=== PATIENT | female | born 1975 | race Caucasian/White ===

== ENCOUNTER 2017-07-31 15:16 | Inpatient (IN) | payer OTHER ==
--- NOTE | 2017-07-31 15:49 | ED PDOC ---
HPI: Chest Pain Time Seen by Provider: 07/31/17 15:26 Chief Complaint (Nursing): Weakness/Neurological Deficit Chief Complaint (Provider): Chest Pain History Per: Patient History/Exam Limitations: no limitations Onset/Duration Of Symptoms: Days (x1), Intermittent Episodes Current Symptoms Are (Timing): Intermittent Episodes Associated Symptoms: denies: Dyspnea Additional Complaint(s): 42 year old female presents to ED with complaints of intermittent left sided chest pain x1 day and has a past medical history of CAD and stent placement in 2013. (+) left arm numbness, (-) SOB, headache, or peripheral weakness. 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 PCP: Trevin Cano Past Medical History Reviewed: Historical Data, Nursing Documentation, Vital Signs Vital Signs: Last Vital Signs Temp 97.8 F 07/31/17 15:23 Pulse 62 07/31/17 15:23 Resp 20 07/31/17 15:23 BP 138/61 07/31/17 15:23 Pulse Ox 99 07/31/17 17:09 - Medical History PMH: CAD - Surgical History Surgical History: Coronary Stent - Family History Family History: States: No Known Family Hx - Living Arrangements Living Arrangements: With Family - Allergies Allergies/Adverse Reactions: Allergies Allergy/AdvReac Type Severity Reaction Status Date / Time No Known Allergies Allergy Unverified 04/13/13 17:45 IRENE Risk Score for UA/NSTEMI - IRENE Risk Score Age > 64: NO Known CAD (Stenosis greater than 50%): YES IRENE Score: 1 Risk %: 5% Curb-65 Severity Score - CURB-65 Severity Score Confusion: No Respiratory Rate greater than/equal to 30: No Systolic BP <90 or Diastolic BP less than/equal 60mmHg: No Age >64: No Curb-65 Score: 0 Percentage 30-day mortality: 0.6% Wells Criteria for PE - Wells Criteria for Pulmonary Embolism Heart Rate >100: No Previous, objectively diagnosed PE or DVT: No Hemoptysis: No Total Score: 0 Review of Systems ROS Statement: Except As Marked, All Systems Reviewed And Found Negative Cardiovascular: Positive for: Chest Pain (left sided) Respiratory: Negative for: Shortness of Breath Neurological: Positive for: Numbness (left arm numbness). Negative for: Weakness (no peripheral weakness), Headache Physical Exam - Reviewed Nursing Documentation Reviewed: Yes Vital Signs Reviewed: Yes - Physical Exam Appears: Positive for: Non-toxic, No Acute Distress Head Exam: Positive for: ATRAUMATIC, NORMOCEPHALIC Skin: Positive for: Normal Color, Warm, Dry Eye Exam: Positive for: Normal appearance, EOMI, PERRL ENT: Positive for: Normal ENT Inspection Neck: Positive for: Normal, Painless ROM, Supple Cardiovascular/Chest: Positive for: Regular Rate, Rhythm. Negative for: Murmur Respiratory: Positive for: Normal Breath Sounds. Negative for: Respiratory Distress Gastrointestinal/Abdominal: Positive for: Normal Exam, Soft. Negative for: Tenderness Back: Positive for: Normal Inspection Extremity: Positive for: Normal ROM. Negative for: Deformity Neurologic/Psych: Positive for: Alert, manager net II-XII (intact), Oriented, Cerebellar Tests (intact). Negative for: Motor/Sensory Deficits ((-) focal, motor, or sensory deficit) - Laboratory Results Result Diagrams: 07/31/17 16:15 07/31/17 16:15 - ECG O2 Sat by Pulse Oximetry: 99 (RA) Pulse Ox Interpretation: Normal Medical Decision Making Medical Decision Makin Initial imp: chest pain, possible ACS. Less likely: neurological Initial plan: * CT HEAD * EKG * Labs * Trop I * UPreg * UDip * CXR CXR FINDINGS LUNGS: No active pulmonary disease. PLEURA: No significant pleural effusion identified. No pneumothorax apparent. CARDIOVASCULAR: Normal. OSSEOUS STRUCTURES: Minor multilevel degenerative spondylosis of the thoracic spine VISUALIZED UPPER ABDOMEN: Normal. OTHER FINDINGS: None. IMPRESSION: No active disease. Scribe Attestation: Documented by Joanne Cano acting as a scribe for Joshua Martin MD. Scribe Attestation: All medical record entries made by the Scribe were at my direction and personally dictated by me. I have reviewed the chart and agree that the record accurately reflects my personal performance of the history, physical exam, medical decision making, and the department course for this patient. I have also personally directed, reviewed, and agree with the discharge instructions and disposition. Disposition - Clinical Impression Clinical Impression: Chest pain - Patient ED Disposition Is Patient to be Admitted: Yes - Disposition Disposition Time: 17:54 Condition: FAIR Forms: [employer] (Yemeni) - Pt Status Changed To: Hospital Disposition Of: Observation - POA Present On Arrival: None
[2017-07-31 16:23] LABS: BASO # 0.1 K/uL (0.0-0.2); BASO % 1.1 % (0.0-2.0); EOS # 0.2 K/uL (0.0-0.7); EOS % 2.7 % (0.0-4.0); HEMATOCRIT 37.8 % (34.0-47.0); LYMPH # 2.5 K/uL (1.0-4.3); LYMPH % 32.1 % (20.0-40.0); MEAN CELL VOLUME 89.3 fl (81.0-99.0); MEAN CORPUSCULAR HEMOGLOBIN 29.8 pg (27.0-31.0); MEAN CORPUSCULAR HGB CONC 33.4 g/dL (33.0-37.0); MEAN PLATELET VOLUME 9.2 fl (7.2-11.7); MONO # 0.8 K/uL (0.0-0.8); MONO % 10.2 % (0.0-10.0); NEUT # 4.2 K/uL (1.8-7.0); NEUT % 53.9 % (50.0-75.0); NRBC % 0.1 % (0.0-0.0); RED CELL DISTRIBUTION WIDTH 13.2 % (11.5-14.5); WHITE BLOOD COUNT 7.8 K/uL (4.8-10.8)
[2017-07-31 16:40] LABS: ALB/GLOB RATIO 1.3 (1.0-2.1); ALKALINE PHOSPHATASE 49 U/L (38-126); ALT/SGPT 31 U/L (9-52); AST/SGOT 32 U/L (14-36); BILIRUBIN,TOTAL 0.6 mg/dl (0.2-1.3); BLOOD UREA NITROGEN 12 mg/dl (7-17); CALCIUM 9.1 mg/dL (8.4-10.2); CARBON DIOXIDE 26 mmol/L (22-30); CHLORIDE 102 mmol/L (98-107); GFR AFRICAN-AMERICAN > 60; GLUCOSE,RANDOM 81 mg/dL (65-105); POTASSIUM 3.9 MMOL/L (3.6-5.0); SODIUM 140 mmol/l (132-148); TOTAL PROTEIN 7.9 G/DL (6.3-8.2)
--- NOTE | 2017-07-31 16:46 | RAD ---
HISTORY: chest pain COMPARISON: No prior. TECHNIQUE: Chest PA and lateral FINDINGS: LUNGS: No active pulmonary disease. PLEURA: No significant pleural effusion identified. No pneumothorax apparent. CARDIOVASCULAR: Normal. OSSEOUS STRUCTURES: Minor multilevel degenerative spondylosis of the thoracic spine VISUALIZED UPPER ABDOMEN: Normal. OTHER FINDINGS: None. IMPRESSION: No active disease.
--- NOTE | 2017-07-31 17:41 | CT ---
PROCEDURE: CT HEAD WITHOUT CONTRAST. HISTORY: left arm numbness COMPARISON: None available. TECHNIQUE: Axial computed tomography images were obtained through the head/brain without intravenous contrast. Radiation dose: Total exam DLP = 986.95 mGy-cm. This CT exam was performed using one or more of the following dose reduction techniques: Automated exposure control, adjustment of the mA and/or kV according to patient size, and/or use of iterative reconstruction technique. FINDINGS: HEMORRHAGE: No intracranial hemorrhage. BRAIN: No mass effect or edema. No atrophy or chronic microvascular ischemic changes. VENTRICLES: No evidence of obstructive hydrocephalus. CALVARIUM: Unremarkable. PARANASAL SINUSES: Unremarkable as visualized. No significant inflammatory changes. MASTOID AIR CELLS: Unremarkable as visualized. No inflammatory changes. OTHER FINDINGS: None. IMPRESSION: No acute intracranial hemorrhage.
--- NOTE | 2017-07-31 18:29 | CP.PCM.HP ---
History of Present Illness - History of Present Illness History of Present Illness: 42 yo female with history of CAD (stent, 2013) complaining of on and off left arm and left neck numbness since a week ago associated with pulsating left sided chest pain. Denied weakness or SOB. 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 Present on Admission - Present on Admission Any Indicators Present on Admission: No History of DVT/PE: No History of Uncontrolled Diabetes: No Urinary Catheter: No Decubitus Ulcer Present: No Review of Systems - Review of Systems All systems: reviewed and no additional remarkable complaints except (aside from those mentioned above, 12 point system review were negative by me) Past Patient History - Tetanus Immunizations Tetanus Immunization: Unknown - Past Social History Smoking Status: Never Smoked Alcohol: None Drugs: Denies Home Situation {Lives}: With Family - CARDIAC Hx Cardiac Disorders: Yes Other/Comment: cardiac stent x1 - PULMONARY Hx Respiratory Disorders: No - NEUROLOGICAL Hx Neurological Disorder: No - HEENT Hx HEENT Problems: No - RENAL Hx Chronic Kidney Disease: No - ENDOCRINE/METABOLIC Hx Endocrine Disorders: No - HEMATOLOGICAL/ONCOLOGICAL Hx Blood Disorders: No - INTEGUMENTARY Hx Dermatological Problems: No - MUSCULOSKELETAL/RHEUMATOLOGICAL Hx Musculoskeletal Disorders: No - GASTROINTESTINAL Hx Gastrointestinal Disorders: No - GENITOURINARY/GYNECOLOGICAL Hx Genitourinary Disorders: No - PSYCHIATRIC Hx Psychophysiologic Disorder: No Hx Substance Use: No - SURGICAL HISTORY Hx Coronary Stent: Yes - ANESTHESIA Hx Anesthesia: No Meds Allergies/Adverse Reactions: Allergies Allergy/AdvReac Type Severity Reaction Status Date / Time No Known Allergies Allergy Unverified 04/13/13 17:45 Physical Exam - Constitutional Appears: No Acute Distress - Head Exam Head Exam: ATRAUMATIC - Eye Exam Eye Exam: absent: Scleral icterus - ENT Exam ENT Exam: Mucous Membranes Moist - Neck Exam Neck exam: Negative for: Meningismus, Tenderness - Respiratory Exam Respiratory Exam: absent: Rhonchi, Wheezes, Respiratory Distress - Cardiovascular Exam Cardiovascular Exam: REGULAR RHYTHM, +S1, +S2 - GI/Abdominal Exam GI & Abdominal Exam: Soft. absent: Tenderness - Rectal Exam Rectal Exam: Deferred - Extremities Exam Extremities exam: Negative for: calf tenderness, pedal edema - Back Exam Back exam: NORMAL INSPECTION - Neurological Exam Neurological exam: Alert, Oriented x3 - Psychiatric Exam Psychiatric exam: Normal Affect - Skin Skin Exam: Dry, Intact Results - Vital Signs Recent Vital Signs: Last Vital Signs Temp 97.8 F 07/31/17 15:23 Pulse 62 07/31/17 15:23 Resp 20 07/31/17 15:23 BP 138/61 07/31/17 15:23 Pulse Ox 99 07/31/17 17:54 - Labs Result Diagrams: 07/31/17 16:15 07/31/17 16:15 Assessment & Plan (1) Chest pain Status: Acute Comment: place on observation in telemetry. serial Troponin and EKG. NTG SL q 4hrs prn for chest pain (2) CAD (coronary artery disease) Status: Acute Comment: ASA 81mg PO daily
[2017-08-01 08:07] LABS: BASO # 0.1 K/uL (0.0-0.2); BASO % 0.9 % (0.0-2.0); EOS # 0.2 K/uL (0.0-0.7); EOS % 3.4 % (0.0-4.0); HEMATOCRIT 36.6 % (34.0-47.0); LYMPH # 1.7 K/uL (1.0-4.3); LYMPH % 26.5 % (20.0-40.0); MEAN CELL VOLUME 89.4 fl (81.0-99.0); MEAN CORPUSCULAR HGB CONC 33.6 g/dL (33.0-37.0); MEAN PLATELET VOLUME 9.1 fl (7.2-11.7); MONO # 0.7 K/uL (0.0-0.8); MONO % 10.9 % (0.0-10.0); NEUT # 3.8 K/uL (1.8-7.0); NEUT % 58.3 % (50.0-75.0); NRBC % 0.1 % (0.0-0.0); RED CELL DISTRIBUTION WIDTH 12.9 % (11.5-14.5); WHITE BLOOD COUNT 6.5 K/uL (4.8-10.8)
[2017-08-01 08:16] LABS: BLOOD UREA NITROGEN 15 mg/dl (7-17); CARBON DIOXIDE 26 mmol/L (22-30); CHLORIDE 105 mmol/L (98-107); GFR AFRICAN-AMERICAN > 60; GLUCOSE,RANDOM 91 mg/dL (65-105); POTASSIUM 4.1 MMOL/L (3.6-5.0); SODIUM 142 mmol/l (132-148)
[2017-08-01] MEDS ORDERED: Enoxaparin 40 mg Syringe SC SCH (09:00)
--- NOTE | 2017-08-01 11:34 | CARD ---
APPROVED REPORT EKG Measurement Heart [id number] NV 130P-5 [id number] <Conclusion> Sinus bradycardia Otherwise normal ECG
--- NOTE | 2017-08-01 13:43 | CARD ---
APPROVED REPORT EKG Measurement Heart [id number] [place] 132P-14 [id number] <Conclusion> Sinus bradycardia with premature atrial complexes in a pattern of bigeminy Otherwise normal ECG
--- NOTE | 2017-08-01 16:23 | CP.PCM.PN ---
Subjective - Date & Time of Evaluation Date of Evaluation: 08/01/17 Time of Evaluation: 13:00 - Subjective Subjective: Pt seen and examined. Denied numbness on left arm but still having mild left sided chest pain. Objective - Vital Signs/Intake and Output Vital Signs (last 24 hours): Temp Pulse Resp BP Pulse Ox 97.7 F 62 18 127/70 100 08/01/17 12:22 08/01/17 12:22 08/01/17 12:22 08/01/17 12:22 08/01/17 12:22 - Medications Medications: Current Medications Acetaminophen (Tylenol 325mg Tab) 650 mg PO Q6 PRN PRN Reason: Pain, Mild (1-3) Last Admin: 07/31/17 20:41 Dose: 650 mg Enoxaparin Sodium (Lovenox) 40 mg SC DAILY [facility] PRN Reason: Protocol Last Admin: 08/01/17 09:01 Dose: 40 mg - Constitutional Appears: No Acute Distress - Head Exam Head Exam: ATRAUMATIC - Eye Exam Eye Exam: absent: Scleral icterus - ENT Exam ENT Exam: Mucous Membranes Moist - Neck Exam Neck Exam: absent: Meningismus - Respiratory Exam Respiratory Exam: absent: Rhonchi, Wheezes - Cardiovascular Exam Cardiovascular Exam: REGULAR RHYTHM, +S1, +S2 - GI/Abdominal Exam GI & Abdominal Exam: Soft. absent: Tenderness - Rectal Exam Rectal Exam: Deferred - Extremities Exam Extremities Exam: absent: Pedal Edema - Neurological Exam Neurological Exam: Alert, Oriented x3 - Psychiatric Exam Psychiatric exam: Normal Affect - Skin Skin Exam: Dry, Intact Assessment and Plan (1) Chest pain Status: Acute (2) CAD (coronary artery disease) Status: Chronic - Assessment and Plan (Free Text) Assessment: 42 yo female with history of CAD (stent, 2013) came in because of numbness of left arm and neck associated with left sided chest pain. (1) Chest pain initial 2 sets of Troponin were negative for ischemic events however the 3rd sets turned positive still having mild chest pain but numbness of the left arm and neck had disappeared cardiology consult with Dr Garcia repeat Troponin after 8 hrs (4th sets) ECHO (2) CAD (coronary artery disease) ASA 81mg PO daily
[2017-08-01] MEDS ORDERED: Enoxaparin 80 mg Syringe SC STA (20:40)
[2017-08-01] MEDS ORDERED: Nitroglycerin 2% 15 INCH/30 GM TUBE TOP STA (20:42)
[2017-08-01] MEDS ORDERED: Nitroglycerin 2% Ointment Foilpak UD TOP STA (20:44)
[2017-08-02 05:24] VITALS: O2SAT 99
[2017-08-02 08:52] VITALS: RESP 18
[2017-08-02] MEDS ORDERED: Enoxaparin 80 mg Syringe SC SCH (09:00)
--- NOTE | 2017-08-02 11:14 | CP.PCM.CON ---
History of Present Illness - History of Present Illness History of Present Illness: this 42-year-old female came into the emergency room complaining of left breast pain quite unconnected to any physical activity. The patient gives history of having had a coronary stent put in 4 years back following which she had taken aspirin and brillenta for one year fitfully. She was quite free of any chest discomfort or palpitations or sudden shortness of breath. She had moved to [place] and has returned to [place] 3 months back. She plans to start seeing her clinical data management director again. She describes a vague sense of chest discomfort quite unconnected to any physical activity and often is able to walk 8-10 blocks without any difficulty. She denies any history of diabetes or hypertension and has never been a smoker. She has no symptoms of congestive cardiac failure. There is no family history of vascular disease. Her weight has been stable. Physical examination shows an anxious elderly female who describes left breast pain and has tenderness in the left breast area. Her heart rate was 64 bpm and regular and her blood pressure was 124/74 mmHg. Her pedal pulses were well felt and there were no carotid bruits. Jugular venous pressure was not elevated and there was no edema over her lower extremities. Again there was tenderness in the left breast area. This was similar to the discomfort that brought her to the emergency room. The apex was not palpable the first and second heart sound are normal there was no murmur, no gallop and no rales. Abdomen was soft liver and spleen are not palpable. Her electrocardiogram at admission and again this morning where normal. Troponin levels were consistently normal on multiple examinations except a single 1 which showed an elevated number.subsequent follow -up troponin levels were normal. This obviously is a lab error. IMPRESSION: atypical chest pain with no evidence of myocardial ischemia. History of coronary stenting 4 years back. The patient may be allowed to return home and see her own clinical data management director which she plans to do. She continues to take aspirin at home. Past Patient History - Tetanus Immunizations Tetanus Immunization: Unknown - Past Medical History & Family History Past Medical History?: Yes - Past Social History Smoking Status: Never Smoked - CARDIAC Hx Cardiac Disorders: Yes Other/Comment: cardiac stent x1 2014 - PULMONARY Hx Respiratory Disorders: No - NEUROLOGICAL Hx Neurological Disorder: No - HEENT Hx HEENT Problems: No - RENAL Hx Chronic Kidney Disease: No - ENDOCRINE/METABOLIC Hx Endocrine Disorders: No - HEMATOLOGICAL/ONCOLOGICAL Hx Blood Disorders: No - INTEGUMENTARY Hx Dermatological Problems: No - MUSCULOSKELETAL/RHEUMATOLOGICAL Hx Musculoskeletal Disorders: No Hx Falls: No - GASTROINTESTINAL Hx Gastrointestinal Disorders: No - GENITOURINARY/GYNECOLOGICAL Hx Genitourinary Disorders: No - PSYCHIATRIC Hx Psychophysiologic Disorder: No Hx Substance Use: No - SURGICAL HISTORY Hx Surgeries: Yes Hx Coronary Stent: Yes - ANESTHESIA Hx Anesthesia: Yes Has any member of the family had a problem w/ anesthesia?: No Meds Allergies/Adverse Reactions: Allergies Allergy/AdvReac Type Severity Reaction Status Date / Time No Known Allergies Allergy Unverified 04/13/13 17:45 - Medications Medications: Current Medications Acetaminophen (Tylenol 325mg Tab) 650 mg PO Q6 PRN PRN Reason: Pain, Mild (1-3) Last Admin: 08/01/17 20:30 Dose: 650 mg Aspirin (Aspirin) 325 mg PO DAILY [facility] Last Admin: 08/02/17 09:02 Dose: 325 mg Atorvastatin Calcium (Lipitor) 40 mg PO DAILY [facility] Last Admin: 08/02/17 08:59 Dose: 40 mg Enoxaparin Sodium (Lovenox) 70 mg SC Q12 [facility] PRN Reason: Protocol Metoprolol Tartrate (Lopressor) 25 mg PO Q12 [facility] Last Admin: 08/02/17 09:03 Dose: Not Given Results - Vital Signs Recent Vital Signs: Last Vital Signs Temp 97.9 F 08/02/17 08:51 Pulse 56 L 08/02/17 09:03 Resp 18 08/02/17 08:51 BP 94/55 L 08/02/17 09:03 Pulse Ox 99 08/02/17 08:51 - Labs Result Diagrams: 08/01/17 06:00 08/01/17 06:00 Labs: Laboratory Results - last 24 hr 08/01/17 08/02/17 18:30 05:30 Troponin I < 0.0120 < 0.0120
[2017-08-02 12:38] VITALS: BP 98/63; PULSE 64; TEMP 98.4
--- NOTE | 2017-08-02 13:38 | CP.PCM.DIS ---
Provider - Provider Date of Admission: 08/01/17 12:53 Attending physician: Rob Lamas MD Consults: Dr Garcia Time Spent in preparation of Discharge (in minutes): 25 Diagnosis - Discharge Diagnosis (1) Chest pain Status: Acute Comment: improved. Troponins were within normal limit aside from one which was elevated (2) CAD (coronary artery disease) Status: Chronic Comment: continue ASA 81mg PO daily Hospital Course - Lab Results Lab Results: Most Recent Lab Values WBC 6.5 K/uL (4.8-10.8) 08/01/17 06:00 RBC 4.10 Mil/uL (3.80-5.20) 08/01/17 06:00 Hgb 12.3 g/dL (12.0-16.0) 08/01/17 06:00 Hct 36.6 % (34.0-47.0) 08/01/17 06:00 MCV 89.4 fl (81.0-99.0) 08/01/17 06:00 MCH 30.0 pg (27.0-31.0) 08/01/17 06:00 MCHC 33.6 g/dL (33.0-37.0) 08/01/17 06:00 RDW 12.9 % (11.5-14.5) 08/01/17 06:00 Plt Count 194 K/uL (130-400) 08/01/17 06:00 MPV 9.1 fl (7.2-11.7) 08/01/17 06:00 Neut % (Auto) 58.3 % (50.0-75.0) 08/01/17 06:00 Lymph % (Auto) 26.5 % (20.0-40.0) 08/01/17 06:00 [place] % (Auto) 10.9 % (0.0-10.0) H 08/01/17 06:00 Eos % (Auto) 3.4 % (0.0-4.0) 08/01/17 06:00 Baso % (Auto) 0.9 % (0.0-2.0) 08/01/17 06:00 Neut # 3.8 K/uL (1.8-7.0) 08/01/17 06:00 Lymph # 1.7 K/uL (1.0-4.3) 08/01/17 06:00 [place] # 0.7 K/uL (0.0-0.8) 08/01/17 06:00 Eos # 0.2 K/uL (0.0-0.7) 08/01/17 06:00 Baso # 0.1 K/uL (0.0-0.2) 08/01/17 06:00 Sodium 142 mmol/l (132-148) 08/01/17 06:00 Potassium 4.1 MMOL/L (3.6-5.0) 08/01/17 06:00 Chloride 105 mmol/L (98-107) 08/01/17 06:00 Carbon Dioxide 26 mmol/L (22-30) 08/01/17 06:00 Anion Gap 14 (10-20) 08/01/17 06:00 BUN 15 mg/dl (7-17) 08/01/17 06:00 Creatinine 1.0 mg/dL (0.7-1.2) 08/01/17 06:00 Est GFR ( Amer) > 60 08/01/17 06:00 Est GFR (Non-Af Amer) > 60 08/01/17 06:00 Random Glucose 91 mg/dL (65-105) 08/01/17 06:00 Calcium 9.0 mg/dL (8.4-10.2) 08/01/17 06:00 Total Bilirubin 0.6 mg/dl (0.2-1.3) 07/31/17 16:15 AST 32 U/L (14-36) 07/31/17 16:15 ALT 31 U/L (9-52) 07/31/17 16:15 Alkaline Phosphatase 49 U/L (38-126) 07/31/17 16:15 Troponin I < 0.0120 ng/mL (0.00-0.120) 08/02/17 05:30 Total Protein 7.9 G/DL (6.3-8.2) 07/31/17 16:15 Albumin 4.5 g/dL (3.5-5.0) 07/31/17 16:15 Globulin 3.4 gm/dL (2.2-3.9) 07/31/17 16:15 Albumin/Globulin Ratio 1.3 (1.0-2.1) 07/31/17 16:15 - Hospital Course Hospital Course: 42 yo female with history of CAD (stent, 2013) complaining of on and off left arm and left neck numbness associated with pulsating left sided chest pain. Troponin levels were within normal except for the 3rd set which was elevated. Follow up levels however were again within normal limit. Patient was discharged in stable condition and was advised to continue taking ASA. Patient would follow up with her own hand trimmer within 2 weeks. Discharge Exam - Head Exam Head Exam: ATRAUMATIC - Eye Exam Eye Exam: Normal appearance - ENT Exam ENT Exam: Mucous Membranes Moist - Neck Exam Neck exam: Full Rom - Respiratory Exam Respiratory Exam: absent: Rhonchi, Wheezes, Respiratory Distress - Cardiovascular Exam Cardiovascular Exam: REGULAR RHYTHM, +S1, +S2 - GI/Abdominal Exam GI & Abdominal Exam: Soft. absent: Tenderness - Rectal Exam Rectal Exam: Deferred - Extremities Exam Extremities exam: normal inspection - Neurological Exam Neurological exam: Alert, Oriented x3 - Psychiatric Exam Psychiatric exam: Normal Affect - Skin Skin Exam: Dry, Intact Discharge Plan - Follow Up Plan Condition: FAIR Disposition: HOME/ ROUTINE
== END 2017-08-02 13:15 | disposition home or self-care (01) | DRG 143 ==
LOC: H.ER 15:16 → H.ERHOLD 17:52 → H.TEL 18:45 → OBSVTOIN 08-01 12:53
DX: R07.89 Other chest pain (principal); I25.10 Atherosclerotic heart disease of native coronary artery without angina pectoris; Z95.5 Presence of coronary angioplasty implant and graft

== ENCOUNTER 2017-12-22 19:45 | Emergency (ER) | payer OTHER ==
[2017-12-22 20:09] VITALS: O2SAT 100
--- NOTE | 2017-12-22 20:48 | ED PDOC ---
HPI: CCC, URI, Sore Throat Time Seen by Provider: 12/22/17 20:46 Chief Complaint (Nursing): ENT Problem Chief Complaint (Provider): FEVER History Per: Patient (42 Y/O FEMALE WITH FEVER/BODYACHES X 2 DAYS. NO VOMITING/ DIARRHEA. NOTES MODERATE PAIN GENERALIZED. HAS COUGH AND SORE THROAT. NO ILL CONTACTS. NO FLU VACCINE THIS YEAR.) Past Medical History Reviewed: Historical Data, Nursing Documentation, Vital Signs Vital Signs: Last Vital Signs Temp 101.8 F H 12/22/17 20:50 Pulse 91 H 12/22/17 20:06 Resp 16 12/22/17 20:06 BP 134/44 L 12/22/17 20:06 Pulse Ox 100 12/22/17 20:48 - Medical History PMH: CAD, Hyperlipidemia Denies: Chronic Kidney Disease - Surgical History Surgical History: Coronary Stent - Family History Family History: States: No Known Family Hx - Home Medications Home Medications: Ambulatory Orders Medication Instructions Recorded Aspirin [Low Dose Aspirin EC] 81 mg PO DAILY 07/31/17 Acetaminophen [Acetaminophen Extra 2 tab PO Q4 PRN #24 tablet 12/22/17 Strength] Ibuprofen [Motrin Tab] 800 mg PO Q8 PRN #21 tab 12/22/17 Oseltamivir Phosphate [Tamiflu] 75 mg PO BID #9 capsule 12/22/17 - Allergies Allergies/Adverse Reactions: Allergies Allergy/AdvReac Type Severity Reaction Status Date / Time No Known Allergies Allergy Verified 12/22/17 20:06 Review of Systems ROS Statement: Except As Marked, All Systems Reviewed And Found Negative Constitutional: Positive for: Fever Respiratory: Positive for: Cough Physical Exam - Reviewed Nursing Documentation Reviewed: Yes Vital Signs Reviewed: Yes - Physical Exam Appears: Positive for: Well, Non-toxic, No Acute Distress Head Exam: Positive for: ATRAUMATIC, NORMAL INSPECTION, NORMOCEPHALIC Skin: Positive for: Normal Color, Warm, DRY Eye Exam: Positive for: EOMI, Normal appearance, PERRL ENT: Positive for: Normal ENT Inspection Neck: Positive for: Normal, Painless ROM Cardiovascular/Chest: Positive for: Regular Rate, Rhythm Respiratory: Positive for: CNT, Normal Breath Sounds Gastrointestinal/Abdominal: Positive for: Normal Exam, Bowel Sounds, Soft Back: Positive for: Normal Inspection Extremity: Positive for: Normal ROM Neurologic/Psych: Positive for: Alert, Oriented - ECG O2 Sat by Pulse Oximetry: 100 - Progress ED Course And Treament: ACETAMINOPHEN 975MG X 1 DOSE TAMIFLU 75 MG X 1 DOSE rapid strep neg motrin 600mg x 1 dose Disposition - Clinical Impression Clinical Impression: Influenza - Patient ED Disposition Is Patient to be Admitted: No - Disposition Referrals: [facility] [Outside] Disposition: Routine/Home Disposition Time: 21:27 Condition: FAIR Prescriptions: Acetaminophen [Acetaminophen Extra Strength] 2 tab PO Q4 PRN #24 tablet PRN Reason: Fever >100.4 F Ibuprofen [Motrin Tab] 800 mg PO Q8 PRN #21 tab PRN Reason: Fever >100.4 F Oseltamivir Phosphate [Tamiflu] 75 mg PO BID #9 capsule Instructions: Influenza (ED) Forms: [employer] (Yoruba), [facility] ED School/Work Excuse Print Language: URUGUAYAN
[2017-12-22] MEDS ORDERED: Sodium Chloride 0.9% 1,000 ML IV STA (21:48)
[2017-12-22 22:20] LABS: BASO % 0.5 % (0.0-2.0); EOS % 0.1 % (0.0-4.0); HEMOGLOBIN 10.2 g/dL (12.0-16.0); LYMPH # 0.7 K/uL (1.0-4.3); LYMPH % 10.1 % (20.0-40.0); MEAN CELL VOLUME 75.9 fl (81.0-99.0); MEAN CORPUSCULAR HEMOGLOBIN 24.2 pg (27.0-31.0); MEAN CORPUSCULAR HGB CONC 31.9 g/dL (33.0-37.0); MEAN PLATELET VOLUME 8.5 fl (7.2-11.7); MONO # 0.7 K/uL (0.0-0.8); MONO % 10.4 % (0.0-10.0); NEUT # 5.1 K/uL (1.8-7.0); NEUT % 78.9 % (50.0-75.0); NRBC % 0.3 % (0.0-0.0); RBC 4.22 Mil/uL (3.80-5.20); RED CELL DISTRIBUTION WIDTH 14.6 % (11.5-14.5); WHITE BLOOD COUNT 6.5 K/uL (4.8-10.8)
[2017-12-22 22:32] LABS: ALB/GLOB RATIO 1.2 (1.0-2.1); ALBUMIN 4.3 g/dL (3.5-5.0); CALCIUM 8.5 mg/dL (8.4-10.2); GFR AFRICAN-AMERICAN > 60; GFR NON-AFRICAN AMERICAN > 60
[2017-12-22 22:45] LABS: ALT/SGPT 26 U/L (9-52); AST/SGOT 43 U/L (14-36); BLOOD UREA NITROGEN 10 mg/dl (7-17)
[2017-12-23 00:03] VITALS: TEMP 100.2
[2017-12-23] MEDS ORDERED: Sodium Chloride 0.9% 1,000 ML IV STA (00:37)
[2017-12-23 01:03] LABS: SQUAMOUS EPITHIAL 2 /hpf (0-5); URINE BILIRUBIN NEGATIVE (NEGATIVE); URINE BLOOD MODERATE (NEGATIVE); URINE CLARITY SLIGHTY-CLOUDY (Clear); URINE COLOR YELLOW (YELLOW); URINE GLUCOSE (UA) NEG (Normal); URINE LEUKOCYTE ESTERASE NEG Leu/uL (Negative); URINE NITRATE NEGATIVE (NEGATIVE); URINE PROTEIN NEGATIVE (NEGATIVE); URINE UROBILINOGEN 0.2-1.0 mg/dL (0.2-1.0)
[2017-12-23 02:07] VITALS: BP 121/64; PULSE 72; RESP 18
--- NOTE | 2017-12-23 11:17 | RAD ---
HISTORY: ROUTINE COMPARISON: 07/31/2017. TECHNIQUE: Chest PA and lateral FINDINGS: LUNGS: No active pulmonary disease. PLEURA: No significant pleural effusion identified. No pneumothorax apparent. CARDIOVASCULAR: Normal. OSSEOUS STRUCTURES: No significant abnormalities. VISUALIZED UPPER ABDOMEN: Normal. OTHER FINDINGS: None. IMPRESSION: No active disease. No significant interval change compared to the prior examination(s).
--- NOTE | 2017-12-24 18:31 | CARD ---
APPROVED REPORT EKG Measurement Heart [id number] <Conclusion> Normal sinus rhythm Normal ECG
== END 2017-12-23 02:14 | disposition home or self-care (01) ==
LOC: H.ER 19:45
DX: J11.1 Influenza due to unidentified influenza virus with other respiratory manifestations (principal); E78.5 Hyperlipidemia, unspecified; I25.10 Atherosclerotic heart disease of native coronary artery without angina pectoris; Z79.82 Long term (current) use of aspirin; Z95.5 Presence of coronary angioplasty implant and graft
CPT/HCPCS: 71046; 80053; 81003; 81025; 84484; 85025; 87070; 87086; 87430; 87804; 93005; 96360; 99283; J7040

== ENCOUNTER 2018-03-13 01:16 | Emergency (ER) | payer OTHER ==
[2018-03-13 01:32] VITALS: BP 125/57; PULSE 67; TEMP 97.7; O2SAT 100; BMI 24.1
[2018-03-13 01:46] VITALS: RESP 16
--- NOTE | 2018-03-13 02:54 | ED PDOC ---
HPI: Chest Pain Chief Complaint (Provider): Chest pain History Per: Patient History/Exam Limitations: no limitations Onset/Duration Of Symptoms: Days, Intermittent Episodes Current Symptoms Are (Timing): Still Present Severity: Moderate Quality: "Pain" Associated Symptoms: Other Exacerbating Factors: None Alleviating Factors: None Additional History Per: Patient <Juan Becerra - Last Filed: 03/13/18 04:54> <Fitz Saavedra - Last Filed: 03/13/18 05:28> Chief Complaint (Nursing): Chest Pain Additional Complaint(s): 42 y/o F with PMhx of cardiac stent in 2013 on Aspirin and migraines, presents to ED with c/o chest pain and a headache that is now resolved. CP is occasional , intermittent with no alleviating or aggravating factors. Denies SOB, palpitations. Patient states that for the past few days she hasnt been able to sleep well and has had a headache localized to left side of the head that resolved before coming to hosp after 1 Tylenol at home, but this morning she woke up with "sensation" below left eyelid that is still present. She cant describe it but states is not pain. Denies vision changes or eye pain. ( Juan Becerra) Supervising Attending Note - Supervising Attending Note The Documented history was done by the: Physician Chucking Machine Operator The documented physical exam was done by the: Physician Chucking Machine Operator - Attestation: I have personally seen and examined this patient.: Yes I have fully participated in the care of the patient.: Yes I have reviewed all pertinent clinical information: Yes <Fitz Saavedra - Last Filed: 03/13/18 05:28> Past Medical History - Medical History PMH: CAD, Hyperlipidemia Denies: Chronic Kidney Disease - Surgical History Surgical History: Coronary Stent - Family History Family History: States: Unknown Family Hx - Social History Current smoker - smoking cessation education provided: No <Juan Becerra - Last Filed: 03/13/18 04:54> <Fitz Saavedra - Last Filed: 03/13/18 05:28> Vital Signs: Last Vital Signs Temp 97.7 F 03/13/18 01:42 Pulse 67 03/13/18 01:42 Resp 16 03/13/18 01:42 BP 125/57 L 03/13/18 01:42 Pulse Ox 100 03/13/18 04:54 - Home Medications Home Medications: Ambulatory Orders Medication Instructions Recorded Aspirin [Low Dose Aspirin EC] 81 mg PO DAILY 07/31/17 Acetaminophen [Acetaminophen Extra 2 tab PO Q4 PRN #24 tablet 12/22/17 Strength] Ibuprofen [Motrin Tab] 800 mg PO Q8 PRN #21 tab 12/22/17 Oseltamivir Phosphate [Tamiflu] 75 mg PO BID #9 capsule 12/22/17 - Allergies Allergies/Adverse Reactions: Allergies Allergy/AdvReac Type Severity Reaction Status Date / Time No Known Allergies Allergy Verified 12/22/17 20:06 IRENE Risk Score for UA/NSTEMI - IRENE Risk Score Age > 64: NO 3 or more CAD Risk Factors: NO Known CAD (Stenosis greater than 50%): YES Aspirin use in past 7 days: YES Severe Angina: NO EKG ST changes greater than 0.5mm: NO IRENE Score: 2 Risk %: 8% <Juan Becerra - Last Filed: 03/13/18 04:54> Review of Systems ROS Statement: Except As Marked, All Systems Reviewed And Found Negative Eyes: Positive for: Other (Discomfort L/eye) Cardiovascular: Positive for: Chest Pain Neurological: Positive for: Headache <Juan Becerra - Last Filed: 03/13/18 04:54> Physical Exam - Physical Exam Appears: Positive for: Well, No Acute Distress Head Exam: Positive for: ATRAUMATIC Skin: Positive for: Normal Color, Warm Eye Exam: Positive for: Normal appearance, EOMI, PERRL. Negative for: Nystagmus , Periorbital swelling, Periorbital tenderness, Conjunctival injection, Scleral icterus ENT: Negative for: Sinus Pain/Drainage, Pharyngeal Erythema, Tonsillar Swelling Neck: Positive for: Normal, Painless ROM Cardiovascular/Chest: Positive for: Regular Rate, Rhythm. Negative for: Gallop , Bradycardia, Tachycardia, Friction Rub Respiratory: Positive for: Normal Breath Sounds. Negative for: Crackles, Rales , Stridor, Wheezing, Respiratory Distress Gastrointestinal/Abdominal: Positive for: Soft. Negative for: Tenderness Extremity: Negative for: Pedal Edema, Calf Tenderness Neurologic/Psych: Positive for: Alert, Oriented, Mood/Affect (Anxious) <Juan Becerra - Last Filed: 03/13/18 04:54> - Laboratory Results Result Diagrams: 03/13/18 03:36 03/13/18 03:36 - ECG O2 Sat by Pulse Oximetry: 100 <Juan Becerra - Last Filed: 03/13/18 04:54> - Laboratory Results Result Diagrams: 03/13/18 03:36 03/13/18 03:36 <Fitz Saavedra - Last Filed: 03/13/18 05:28> - Progress ED Course And Treament: Trops and EKG normal CMP unremarkable Hgb 9 CP resolved Patient stable to DC home to f/u as outpatient for anemia workup (Juan Becerra) Medical Decision Making <Juan Becerra - Last Filed: 03/13/18 04:54> <Fitz Saavedra - Last Filed: 03/13/18 05:28> Medical Decision Makin42 y/o F with Hx of CAD with stent placement and migraine presents with c/o CP CP with Hx of CAD EKG Normal sinus rhythm Troponins, CMP, CBC and Coags Will revaluate (Juan Becerra) Disposition - Disposition Disposition Time: 04:50 <Juan Becerra - Last Filed: 03/13/18 04:54> <Fitz Saavedra - Last Filed: 03/13/18 05:28> - Clinical Impression Clinical Impression: Atypical chest pain - Disposition Condition: STABLE Instructions: Chest Pain Forms: [facility] (Tunisian) Print Language: [place]
[2018-03-13 03:42] LABS: BASO # 0.1 K/uL (0.0-0.2); BASO % 1.2 % (0.0-2.0); EOS # 0.2 K/uL (0.0-0.7); EOS % 3.1 % (0.0-4.0); LYMPH # 2.3 K/uL (1.0-4.3); LYMPH % 27.7 % (20.0-40.0); MEAN CELL VOLUME 71.6 fl (81.0-99.0); MEAN CORPUSCULAR HEMOGLOBIN 23.4 pg (27.0-31.0); MEAN CORPUSCULAR HGB CONC 32.7 g/dL (33.0-37.0); MEAN PLATELET VOLUME 8.4 fl (7.2-11.7); MONO # 0.8 K/uL (0.0-0.8); MONO % 9.2 % (0.0-10.0); NEUT # 4.8 K/uL (1.8-7.0); NEUT % 58.8 % (50.0-75.0); RBC 3.85 Mil/uL (3.80-5.20); RED CELL DISTRIBUTION WIDTH 16.7 % (11.5-14.5); WHITE BLOOD COUNT 8.1 K/uL (4.8-10.8)
[2018-03-13 04:00] LABS: ALB/GLOB RATIO 1.1 (1.0-2.1); ALBUMIN 3.8 g/dL (3.5-5.0); ALT/SGPT 28 U/L (9-52); AST/SGOT 32 U/L (14-36); BLOOD UREA NITROGEN 18 mg/dl (7-17); CALCIUM 8.8 mg/dL (8.4-10.2); GFR AFRICAN-AMERICAN > 60; GFR NON-AFRICAN AMERICAN > 60
[2018-03-13 05:26] LABS: INR 1.1 (0.9-1.2); PARTIAL THROMBOPLASTIN TIME 34.7 Seconds (25.6-37.1); PROTHROMBIN TIME 11.9 Seconds (9.8-13.1)
== END 2018-03-13 04:59 | disposition home or self-care (01) ==
LOC: H.ER 01:16
DX: R07.89 Other chest pain (principal); E78.5 Hyperlipidemia, unspecified; I25.10 Atherosclerotic heart disease of native coronary artery without angina pectoris; Z79.82 Long term (current) use of aspirin; Z95.5 Presence of coronary angioplasty implant and graft

== ENCOUNTER 2019-04-02 20:26 | Inpatient (IN) | payer SELFPAY ==
[2019-04-02 20:27] VITALS: BMI 24.1
[2019-04-02] MEDS ORDERED: Iohexol 240 (50 ml) PO STA (21:00)
[2019-04-02] MEDS ORDERED: Iohexol 240 (50 ml) ONE (21:07)
--- NOTE | 2019-04-02 21:22 | ED PDOC ---
HPI: Abdomen Time Seen by Provider: 04/02/19 20:45 Chief Complaint (Nursing): Abdominal Pain Chief Complaint (Provider): abdominal pain History Per: Patient, Tooth Cutter Spur (suzette #[id number]) History/Exam Limitations: no limitations Onset/Duration Of Symptoms: Days (3x) Current Symptoms Are (Timing): Still Present Severity: Moderate Location Of Pain/Discomfort: Epigastric, LUQ, LLQ Quality Of Discomfort: Other (constant, dull sometimes) Additional Complaint(s): 43 year old female with CAD (stent 2013) presents to the ED for an evaluation of abdominal pain that started 2x days ago. Patient states that the abdominal pain started in the left lower quadrant, and move upwards to the left upper quadrant and to the epigastric region and throat. Patient states that the pain is constant, but sometimes dull. Patient states that the epigastric and throat pain started yesterday after taking naproxen. Patient was seen in the clinic 2x days and was prescribed naproxen and an Rx for CT imaging. Patient reports taking naproxen with no relief and thinks that it made the pain worse. Patient reports having nausea, urinary frequency, and constipation. Patient states that she has constipation pain, but had a small bowel movement today. Pt does report occasionally left sided chest pain since having stent place, last was 2 days ago, nothing currently. 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 Patient denies vomiting, back pain, difficulty breathing, or a history of abdomi nal surgeries. PMD: [facility] Past Medical History Reviewed: Historical Data, Nursing Documentation, Vital Signs Vital Signs: Last Vital Signs Temp 98.1 F 04/02/19 20:37 Pulse 96 H 04/02/19 20:37 Resp 16 04/02/19 20:37 BP 126/67 04/02/19 20:37 Pulse Ox 100 04/02/19 20:37 GABE Report Viewed: Yes Primary Care Provider: FAMILY PROVIDER,NO - Medical History PMH: CAD, Hyperlipidemia Denies: Chronic Kidney Disease - Surgical History Surgical History: Coronary Stent (2013) - Family History Family History: States: No Known Family Hx - Social History Current smoker - smoking cessation education provided: No Alcohol: None Drugs: Denies - Home Medications Home Medications: Ambulatory Orders Medication Instructions Recorded Aspirin [Low Dose Aspirin EC] 81 mg PO DAILY 07/31/17 Naproxen [Naprosyn] 500 mg PO BID 04/03/19 - Allergies Allergies/Adverse Reactions: Allergies Allergy/AdvReac Type Severity Reaction Status Date / Time No Known Allergies Allergy Verified 04/02/19 20:40 Review of Systems ROS Statement: Except As Marked, All Systems Reviewed And Found Negative ENT: Positive for: Throat Pain Cardiovascular: Negative for: Chest Pain Respiratory: Negative for: Shortness of Breath Gastrointestinal: Positive for: Nausea, Abdominal Pain (LLQ, LUQ, epigastric), Constipation. Negative for: Vomiting Genitourinary Female: Positive for: Frequency Musculoskeletal: Negative for: Back Pain Physical Exam - Reviewed Nursing Documentation Reviewed: Yes Vital Signs Reviewed: Yes - Physical Exam Comments: GENERAL APPEARANCE: Patient is awake, alert, oriented x 3, in mild obvious discomfort. SKIN: Warm, dry; (-) cyanosis. EYES: (-) conjunctival pallor, (-) scleral icterus. ENMT: Mucous membranes moist. NECK: (-) tenderness, (-) stiffness, (-) lymphadenopathy. CHEST AND RESPIRATORY: (-) rales, (-) rhonchi, (-) wheezes; breath sounds equal bilaterally. HEART AND CARDIOVASCULAR: (-) irregularity; (-) murmur, (-) gallop. ABDOMEN AND GI: (-) distention. Bowel sounds active; soft, left side tenderness more LUQ and suprapubic tenderness. (-) guarding, (-) rebound, (-) palpable masses, (-) organomegaly, (-) CVA tenderness. EXTREMITIES: (-) deformity, (-) edema, (+) distal pulses. NEURO AND PSYCH: Mental status as above; (-) focal findings. - Laboratory Results Result Diagrams: 04/02/19 21:26 04/02/19 21:26 - ECG ECG Rhythm: Positive for: Normal QRS, Sinus Rhythm (60). Negative for: ST/T Changes O2 Sat by Pulse Oximetry: 100 (RA) Pulse Ox Interpretation: Normal Medical Decision Making Medical Decision Makin:45 Initial impression: 43 year old female with LLQ pain. Constipation vs divert iculitis. Initial plan: * CT abd pelvis with PO and IV contrast * CMP * lipase * udip * CBC with differential * urinalysis * omnipaque 50 ml PO * pepcid 20 mg IVP * toradol 30 mg IVP * zofran 4 mg IVP * EKG and trop added due to CAD history 02:20 CT SCAN OF THE ABDOMEN AND PELVIS WITH CONTRAST. CLINICAL HISTORY: Left lower quadrant pain. Constipation. Comparison: 01/31/2012. TECHNIQUE: Multiple axial and coronal CT images were obtained through the abdomen and pelvis after administration of intravenous contrast material. COMMENTS: Changes of pelvic congestion syndrome. Distended bladder. Diffuse thickening of the bladder. Bilateral basilar subsegmental atelectatic pulmonary changes. Diffuse thickening of the stomach. Moderate amount of fecal residue is noted in the large bowel. Uncomplicated colonic diverticulosis. Interval appearance of moderate amount of pericholecystic free fluid. 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 Findings are stable. The liver is of uniform attenuation without mass or defect. There is no intra or extrahepatic biliary ductal dilatation. The spleen is normal. The gallbladder is within normal limits. The pancreas is of normal contour and attenuation characteristics. There is no evidence of adrenal mass. Left kidney demonstrates prompt nephrogram. The left kidney is normal in size, shape and configuration. There is no evidence of renal or ureteral mass. No renal or ureteral calculi are identified. There is no left hydroureter or hydronephrosis. No evidence for appendicitis. There is no bowel wall thickening. No evidence for small or large bowel obstruction. There is no evidence of intrinsic or extrinsic bladder mass. Images of the lung bases show no evidence of pleural or parenchymal mass. There are no pleural effusions. The bony structures are free of lytic or blastic lesions. IMPRESSION: Changes of pelvic congestion syndrome. Distended bladder. Diffuse thickening of the bladder. Possibly mild cystitis. Bilateral basilar subsegmental atelectatic pulmonary changes. Diffuse thickening of the stomach. Moderate amount of fecal residue is noted in the large bowel. Uncomplicated colonic diverticulosis. Interval appearance of moderate amount of pericholecystic free fluid. Sonographic evaluation is suggested. 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 Findings are stable. Thank you for your kind referral of this patient. Electronically signed on April 03, 2019 2:17:14 AM EDT by: Guru York M.D., Certified by [facility] DEWEY, Neuroradiology 02:22 As pt does have epigastric pain and tenderness will get US gallbladder to r/o acute cholecystitis 02:30 language line [id number] used to discuss all results with pt, pt was sleeping, easily arousable, continues with moderate epigastric and suprapubic tenderness, pt reports her pain never got better, discussed further treatment of US and enema 0420 Ultrasound of the gallbladder. Indication: Abdominal pain. Technique: Real-time ultrasound images were obtained. Findings: Liver is normal in size measuring 15.1 cm. Diffuse thickening of the wall of the gallbladder measuring 6 mm. No evidence of cholelithiasis. No evidence of sludge. Negative sonographic Valdes. Nondilated common bile duct measuring 4.1 mm. Limited visualization of the pancreas secondary to gaseous bowel distention. Unremarkable aorta. Unremarkable IVC. The right kidney is enlarged measuring 17.9x8x9.5 cm. Severe right hydronephrosis. Pericholecystic free fluid is noted. Impression: Pericholecystic free fluid. Diffuse thickening of the wall of the gallbladder. Findings are suggestive of acalculous cholecystitis. Electronically signed on April 03, 2019 4:17:15 AM EDT by: Guru York M.D., Certified by [facility]REE DEEWY, Neuroradiology surgery resident paged for consult Dr. Saavedra spoke to resident who will come see pt used language line [id number] to discussed with pt the US results and plan for admission with surgery consult and likely the need of surgery, pt is understanding and in agreement and treatment and plan for admission 0540 surgery resident saw pt, will consult spoke to Dr. Pettit who accepts pt for admission -- ScribeAttestation: Documented Salvatore Porter, acting as a scribe for Mookie Lucio PA-C. Provider ScribeAttestation: All medical record entries made by the Scribe were at my direction and pe rsonally dictated by me. I have reviewed the chart and agree that the record accurately reflects my personal performance of the history, physical exam, medical decision making, and the department course for this patient. I have also personally directed, reviewed, and agree with the discharge instructions and disposition. Disposition - Clinical Impression Clinical Impression: Acalculous cholecystitis, Constipation, Pelvic congestion syndrome, Diverticulosis - Patient ED Disposition Is Patient to be Admitted: Yes Discussed With : Daniel Pettit Doctor Will See Patient In The: Hospital Counseled Patient/Family Regarding: Studies Performed, Diagnosis - Disposition Disposition Time: 05:43 Condition: STABLE - Pt Status Changed To: Hospital Disposition Of: Inpatient - Admit Certification Admit to Inpatient:: After my assessment, the patient will require hospitalizati on for at least two midnights. This is because of the severity of symptoms shown, intensity of services needed, and/or the medical risk in this patient being treated as an outpatient. - POA Present On Arrival: None
[2019-04-02 21:34] LABS: SQUAMOUS EPITHIAL 2 /hpf (0-5); URINE BILIRUBIN NEGATIVE (NEGATIVE); URINE BLOOD NEGATIVE (NEGATIVE); URINE CLARITY SLIGHTY-CLOUDY (Clear); URINE COLOR YELLOW (YELLOW); URINE GLUCOSE (UA) NEG (NEGATIVE); URINE LEUKOCYTE ESTERASE NEG Leu/uL (Negative); URINE PROTEIN NEGATIVE (NEGATIVE); URINE UROBILINOGEN 0.2-1.0 mg/dL (0.2-1.0)
[2019-04-02 21:38] LABS: BASO # 0.1 K/uL (0.0-0.2); BASO % 0.6 % (0.0-2.0); EOS # 0.1 K/uL (0.0-0.7); EOS % 1.3 % (0.0-4.0); HEMOGLOBIN 8.7 g/dL (12.0-16.0); LYMPH # 1.9 K/uL (1.0-4.3); LYMPH % 22.8 % (20.0-40.0); MEAN CELL VOLUME 72.5 fl (81.0-99.0); MEAN CORPUSCULAR HGB CONC 31.8 g/dL (33.0-37.0); MEAN PLATELET VOLUME 8.6 fl (7.2-11.7); MONO # 0.7 K/uL (0.0-0.8); MONO % 8.2 % (0.0-10.0); NEUT # 5.6 K/uL (1.8-7.0); NEUT % 67.1 % (50.0-75.0); RBC 3.79 Mil/uL (3.80-5.20); RED CELL DISTRIBUTION WIDTH 16.4 % (11.5-14.5); WHITE BLOOD COUNT 8.4 K/uL (4.8-10.8)
[2019-04-02 21:51] LABS: ALB/GLOB RATIO 1.3 (1.0-2.1); ALBUMIN 4.1 g/dL (3.5-5.0); ALT/SGPT 18 U/L (9-52); AST/SGOT 36 U/L (14-36); BLOOD UREA NITROGEN 17 mg/dl (7-17); CALCIUM 8.9 mg/dL (8.4-10.2); GFR NON-AFRICAN AMERICAN > 60; LIPASE 259 U/L (23-300)
[2019-04-03] MEDS ORDERED: Sodium Chloride 0.9% 50 ML IV ONE (00:40)
[2019-04-03] MEDS ORDERED: Iohexol 300 100 ML IJ ONE (00:40)
[2019-04-03] MEDS ORDERED: Piperacillin/Tazobact 3.375 GM in Sodium Chloride 0.9% 100 ML IV STA (04:22)
[2019-04-03] MEDS ORDERED: Piperacillin/Tazobact 3.375 gm Inj IVPB ONE (05:00)
--- NOTE | 2019-04-03 05:14 | CP.PCM.CON ---
History of Present Illness - History of Present Illness History of Present Illness: Surgery Consult Note- Dr. Wynn Reason for Consult: Acalculous Cholecystitits 43M pmhx significant for CAD s/p Cardiac vs Carotid stent in 2013 presents to [facility] ED with generalized abdominal pain started LUQ radiating to mid-epigastric then RUQ for 2 days. Associated nausea, denies vomiting. Pain is unchanged w/ food. Denies recent sick contacts or foreign travel Admits to constipation, pebble like stool over the last 3 days. 12 pt ROS conducted, negative otherwise stated above PMH: stated above, nephrolithiasis, hydronephrosis PSH: Cardiac stent (2013) ALL: NKDA SocialHx: denies tobacco, etoh, recreational drug use FH: non-contributory Review of Systems - Review of Systems All systems: reviewed and no additional remarkable complaints except - Constitutional Constitutional: As Per HPI Past Patient History - Infectious Disease Hx of Infectious Diseases: None - Tetanus Immunizations Tetanus Immunization: Unknown - Past Medical History & Family History Past Medical History?: Yes - Past Social History Alcohol: None Drugs: Denies - CARDIAC Hx Cardiac Disorders: Yes Other/Comment: cardiac stent x1 2014 - PULMONARY Hx Respiratory Disorders: No - NEUROLOGICAL Hx Neurological Disorder: No - HEENT Hx HEENT Problems: No - RENAL Hx Chronic Kidney Disease: No - ENDOCRINE/METABOLIC Hx Endocrine Disorders: No - HEMATOLOGICAL/ONCOLOGICAL Hx Blood Disorders: No - INTEGUMENTARY Hx Dermatological Problems: No - MUSCULOSKELETAL/RHEUMATOLOGICAL Hx Musculoskeletal Disorders: No Hx Falls: No - GASTROINTESTINAL Hx Gastrointestinal Disorders: No - GENITOURINARY/GYNECOLOGICAL Hx Genitourinary Disorders: No - PSYCHIATRIC Hx Psychophysiologic Disorder: No Hx Substance Use: No - SURGICAL HISTORY Hx Coronary Stent: Yes (2013) - ANESTHESIA Hx Anesthesia: Yes Meds Allergies/Adverse Reactions: Allergies Allergy/AdvReac Type Severity Reaction Status Date / Time No Known Allergies Allergy Verified 04/02/19 20:40 - Medications Medications: Current Medications Piperacillin Sod/Tazobactam (Sod 3.375 gm/ Sodium Chloride) 100 mls @ 100 mls/hr IV STAT STA; Protocol Stop: 04/03/19 05:21 Physical Exam - Constitutional Appears: Non-toxic, No Acute Distress - Head Exam Head Exam: ATRAUMATIC - ENT Exam ENT Exam: Mucous Membranes Moist - Respiratory Exam Respiratory Exam: NORMAL BREATHING PATTERN. absent: Accessory Muscle Use, Respiratory Distress - Cardiovascular Exam Cardiovascular Exam: REGULAR RHYTHM. absent: Bradycardia, Tachycardia - GI/Abdominal Exam GI & Abdominal Exam: Soft, Tenderness (tender to palpation RUQ and mid- epigastrum). absent: Distended, Firm, Guarding, Hernia - Neurological Exam Neurological exam: Alert, Oriented x3 - Psychiatric Exam Psychiatric exam: Normal Affect - Skin Skin Exam: Intact, Warm Results - Vital Signs Recent Vital Signs: Last Vital Signs Temp 98.1 F 04/02/19 20:37 Pulse 63 04/02/19 22:33 Resp 16 04/02/19 22:33 BP 127/56 L 04/02/19 22:33 Pulse Ox 100 04/03/19 04:24 - Labs Result Diagrams: 04/02/19 21:26 04/02/19 21:26 Labs: Laboratory Results - last 24 hr 04/02/19 04/02/19 04/02/19 21:26 21:26 21:26 WBC 8.4 RBC 3.79 L Hgb 8.7 L Hct 27.5 L MCV 72.5 L MCH 23.0 L MCHC 31.8 L RDW 16.4 H Plt Count 244 MPV 8.6 Neut % (Auto) 67.1 Lymph % (Auto) 22.8 Ocean % (Auto) 8.2 Eos % (Auto) 1.3 Baso % (Auto) 0.6 Neut # (Auto) 5.6 Lymph # (Auto) 1.9 Ocean # (Auto) 0.7 Eos # (Auto) 0.1 Baso # (Auto) 0.1 Sodium 137 Potassium 4.4 Chloride 104 Carbon Dioxide 25 Anion Gap 12 BUN 17 Creatinine 0.8 Est GFR ( Amer) > 60 Est GFR (Non-Af Amer) > 60 Random Glucose 90 Calcium 8.9 Total Bilirubin 0.2 AST 36 ALT 18 Alkaline Phosphatase 46 Troponin I Total Protein 7.3 Albumin 4.1 Globulin 3.2 Albumin/Globulin Ratio 1.3 Lipase 259 Urine Color Yellow Urine Clarity Slighty-cloudy Urine pH 7.0 Ur Specific Mousie 1.018 Urine Protein Negative Urine Glucose (UA) Neg Urine Ketones Negative Urine Blood Negative Urine Nitrate Negative Urine Bilirubin Negative Urine Urobilinogen 0.2-1.0 Ur Leukocyte Esterase Neg Urine RBC (Auto) 1 Urine Microscopic WBC 1 Ur Squamous Epith Cells 2 04/02/19 21:56 WBC RBC Hgb Hct MCV MCH MCHC RDW Plt Count MPV Neut % (Auto) Lymph % (Auto) Ocean % (Auto) Eos % (Auto) Baso % (Auto) Neut # (Auto) Lymph # (Auto) Ocean # (Auto) Eos # (Auto) Baso # (Auto) Sodium Potassium Chloride Carbon Dioxide Anion Gap BUN Creatinine Est GFR ( Amer) Est GFR (Non-Af Amer) Random Glucose Calcium Total Bilirubin AST ALT Alkaline Phosphatase Troponin I < 0.0120 Total Protein Albumin Globulin Albumin/Globulin Ratio Lipase Urine Color Urine Clarity Urine pH Ur Specific Mousie Urine Protein Urine Glucose (UA) Urine Ketones Urine Blood Urine Nitrate Urine Bilirubin Urine Urobilinogen Ur Leukocyte Esterase Urine RBC (Auto) Urine Microscopic WBC Ur Squamous Epith Cells Assessment & Plan - Assessment and Plan (Free Text) Assessment: 43F w/ abdominal pain, constipation, US findings consistent w/ Acalculous cholecystitis Plan: - no leukocytosis or left shift - plan for HIDA - serial abd exams - pain control and anti-emetic PRN - further management pending results - stool softner - further rec[facility]
--- NOTE | 2019-04-03 06:29 | CP.PCM.HP ---
<Taisha Menjivar - Last Filed: 04/03/19 06:38> History of Present Illness - History of Present Illness History of Present Illness: 43 yo female with CAD (1 stent placed in 2013) presented to the ED because of abdominal pain. Pain started 2 days ago, began on the left side of the abdomen and radiartes to the epigastrium and the right side of the abdomen. Reports pain is constant, 8/10, dull-like pain. Pain is associated with nausea, chills and constipation of 3 days. Patient tried tylenol for abdominal pain relief but reports it has not help. LMP was 03/23/19. Last BM was yesterday, reports hard pebble like stool. Denies fevers, vomiting, back pain, difficulty breathing, or dysuria. Last food intake was this morning at 4am (3 crackers). ROS: negative except for stated above in HPI. PMD: [facility] Surgical history: CAD in 2013 in [place]- 1 stent placement Social history: Denies alcohol use, smoking history, and illicit drug use. Family history: Non-contributory Medications: Naproxen and Aspirin 81mg ED course: hemodynamically stable - CT abd pelvis with PO and IV contrast - CMP, lipase, udip, CBC with diff, U/A - pepcid 20 mg IVP x1 - toradol 30 mg IVP x1 - zofran 4 mg IVP - EKG and trop added due to CAD history Present on Admission - Present on Admission Any Indicators Present on Admission: No History of DVT/PE: No History of Uncontrolled Diabetes: No Past Patient History - Infectious Disease Hx of Infectious Diseases: None - Tetanus Immunizations Tetanus Immunization: Unknown - Past Medical History & Family History Past Medical History?: Yes - Past Social History Alcohol: None Drugs: Denies - CARDIAC Hx Cardiac Disorders: Yes Other/Comment: cardiac stent x1 2014 - PULMONARY Hx Respiratory Disorders: No - NEUROLOGICAL Hx Neurological Disorder: No - HEENT Hx HEENT Problems: No - RENAL Hx Chronic Kidney Disease: No - ENDOCRINE/METABOLIC Hx Endocrine Disorders: No - HEMATOLOGICAL/ONCOLOGICAL Hx Blood Disorders: No - INTEGUMENTARY Hx Dermatological Problems: No - MUSCULOSKELETAL/RHEUMATOLOGICAL Hx Musculoskeletal Disorders: No Hx Falls: No - GASTROINTESTINAL Hx Gastrointestinal Disorders: No - GENITOURINARY/GYNECOLOGICAL Hx Genitourinary Disorders: No - PSYCHIATRIC Hx Psychophysiologic Disorder: No Hx Substance Use: No - SURGICAL HISTORY Hx Coronary Stent: Yes (2013) - ANESTHESIA Hx Anesthesia: Yes Meds Allergies/Adverse Reactions: Allergies Allergy/AdvReac Type Severity Reaction Status Date / Time No Known Allergies Allergy Verified 04/02/19 20:40 Physical Exam - Constitutional Appears: Non-toxic, In Acute Distress (in pain) - Head Exam Head Exam: NORMAL INSPECTION - Eye Exam Eye Exam: Normal appearance - ENT Exam ENT Exam: Mucous Membranes Moist - Neck Exam Neck exam: Positive for: Normal Inspection - Respiratory Exam Respiratory Exam: Clear to Auscultation Bilateral, NORMAL BREATHING PATTERN. absent: Accessory Muscle Use, Decreased Breath Sounds, Rales, Rhonchi, Wheezes, Respiratory Distress, Stridor - Cardiovascular Exam Cardiovascular Exam: +S1, +S2 - GI/Abdominal Exam GI & Abdominal Exam: Normal Bowel Sounds, Soft, Tenderness (Generalized tenderness, more pronounced on the left side. ). absent: Diminished Bowel Sounds, Distended, Firm, Guarding, Rebound, Rigid - Extremities Exam Extremities exam: Positive for: normal inspection, pedal pulses present. Negative for: calf tenderness, pedal edema, tenderness Additional comments: Ecchymosis noted on right lower leg on admission - Back Exam Back exam: NORMAL INSPECTION. absent: CVA tenderness (L), CVA tenderness (R) - Neurological Exam Neurological exam: Alert, Oriented x3 - Psychiatric Exam Psychiatric exam: Normal Affect, Normal Mood - Skin Skin Exam: Dry, Intact, Normal Color, Warm Results - Vital Signs Recent Vital Signs: Last Vital Signs Temp 98.5 F 04/03/19 05:55 Pulse 57 L 04/03/19 05:55 Resp 16 04/03/19 05:55 BP 124/59 L 04/03/19 05:55 Pulse Ox 97 04/03/19 05:55 - Labs Result Diagrams: 04/02/19 21:26 04/02/19 21:26 Labs: Laboratory Results - last 24 hr 04/02/19 04/02/19 04/02/19 21:26 21:26 21:26 WBC 8.4 RBC 3.79 L Hgb 8.7 L Hct 27.5 L MCV 72.5 L MCH 23.0 L MCHC 31.8 L RDW 16.4 H Plt Count 244 MPV 8.6 Neut % (Auto) 67.1 Lymph % (Auto) 22.8 Carbon % (Auto) 8.2 Eos % (Auto) 1.3 Baso % (Auto) 0.6 Neut # (Auto) 5.6 Lymph # (Auto) 1.9 Carbon # (Auto) 0.7 Eos # (Auto) 0.1 Baso # (Auto) 0.1 Sodium 137 Potassium 4.4 Chloride 104 Carbon Dioxide 25 Anion Gap 12 BUN 17 Creatinine 0.8 Est GFR ( Amer) > 60 Est GFR (Non-Af Amer) > 60 Random Glucose 90 Calcium 8.9 Total Bilirubin 0.2 AST 36 ALT 18 Alkaline Phosphatase 46 Troponin I Total Protein 7.3 Albumin 4.1 Globulin 3.2 Albumin/Globulin Ratio 1.3 Lipase 259 Urine Color Yellow Urine Clarity Slighty-cloudy Urine pH 7.0 Ur Specific [place] 1.018 Urine Protein Negative Urine Glucose (UA) Neg Urine Ketones Negative Urine Blood Negative Urine Nitrate Negative Urine Bilirubin Negative Urine Urobilinogen 0.2-1.0 Ur Leukocyte Esterase Neg Urine RBC (Auto) 1 Urine Microscopic WBC 1 Ur Squamous Epith Cells 2 04/02/19 21:56 WBC RBC Hgb Hct MCV MCH MCHC RDW Plt Count MPV Neut % (Auto) Lymph % (Auto) Carbon % (Auto) Eos % (Auto) Baso % (Auto) Neut # (Auto) Lymph # (Auto) Carbon # (Auto) Eos # (Auto) Baso # (Auto) Sodium Potassium Chloride Carbon Dioxide Anion Gap BUN Creatinine Est GFR ( Amer) Est GFR (Non-Af Amer) Random Glucose Calcium Total Bilirubin AST ALT Alkaline Phosphatase Troponin I < 0.0120 Total Protein Albumin Globulin Albumin/Globulin Ratio Lipase Urine Color Urine Clarity Urine pH Ur Specific [place] Urine Protein Urine Glucose (UA) Urine Ketones Urine Blood Urine Nitrate Urine Bilirubin Urine Urobilinogen Ur Leukocyte Esterase Urine RBC (Auto) Urine Microscopic WBC Ur Squamous Epith Cells Assessment & Plan - Assessment and Plan (Free Text) Assessment: 43 yo female with history of CAD (stent placed in 2013) presented with LLQ pain admitted for acalculus cholecystitis. Plan: 1. Acalculus cholecystitis - Admit to med/surg - No leukocytosis - afebrile, hemodynamically stable - U/S: Pericholecystic free fluid; Diffuse thickening of the wall of the gallbladder. Suggestive of acalculous cholecystitis. - CT scan: Changes of pelvic congestion syndrome; Diffuse thickening of the armida dder. Possibly mild cystitis; Bilateral basilar subsegmental atelectatic pulmonary changes; Diffuse thickening of the stomach; Moderate amount of fecal residue is noted in the large bowel; Uncomplicated colonic diverticulosis; Interval appearance of moderate amount of pericholecystic free fluid. - Surgical consult appreciated - Zosyn for Abx - Pain: toradol - Nausea: Zofran - NPO at this time - IVF @ maintaince - GI prophylaxis: Pepcid daily 2. Constipation - S/P enema - Monitor at this time 3. Right leg pain - Duplex ultrasond bilaterally 4. History of CAD - C/W home medication: Aspirin 5. Right hydronephrosis - Chronic - CT scan: Unchanged severe right hydronephrosis with chronic cystic scarring/atrophy of the right kidney from a long-standing tear, probably unchanged at right ureteropelvic junction stenosis. 6. DVT prophylaxis - SCD, early ambulation, and Lovenox <Daniel Pettit - Last Filed: 04/03/19 11:29> Results - Vital Signs Recent Vital Signs: Last Vital Signs Temp 98.6 F 04/03/19 08:35 Pulse 58 L 04/03/19 08:35 Resp 20 04/03/19 08:35 BP 114/56 L 04/03/19 08:35 Pulse Ox 99 04/03/19 08:35 - Labs Result Diagrams: 04/02/19 21:26 04/02/19 21:26 Labs: Laboratory Results - last 24 hr 04/02/19 04/02/19 04/02/19 21:26 21:26 21:26 WBC 8.4 RBC 3.79 L Hgb 8.7 L Hct 27.5 L MCV 72.5 L MCH 23.0 L MCHC 31.8 L RDW 16.4 H Plt Count 244 MPV 8.6 Neut % (Auto) 67.1 Lymph % (Auto) 22.8 Carbon % (Auto) 8.2 Eos % (Auto) 1.3 Baso % (Auto) 0.6 Neut # (Auto) 5.6 Lymph # (Auto) 1.9 Carbon # (Auto) 0.7 Eos # (Auto) 0.1 Baso # (Auto) 0.1 PT INR Sodium 137 Potassium 4.4 Chloride 104 Carbon Dioxide 25 Anion Gap 12 BUN 17 Creatinine 0.8 Est GFR ( Amer) > 60 Est GFR (Non-Af Amer) > 60 Random Glucose 90 Lactic Acid Calcium 8.9 Total Bilirubin 0.2 AST 36 ALT 18 Alkaline Phosphatase 46 Troponin I Total Protein 7.3 Albumin 4.1 Globulin 3.2 Albumin/Globulin Ratio 1.3 Lipase 259 Urine Color Yellow Urine Clarity Slighty-cloudy Urine pH 7.0 Ur Specific [place] 1.018 Urine Protein Negative Urine Glucose (UA) Neg Urine Ketones Negative Urine Blood Negative Urine Nitrate Negative Urine Bilirubin Negative Urine Urobilinogen 0.2-1.0 Ur Leukocyte Esterase Neg Urine RBC (Auto) 1 Urine Microscopic WBC 1 Ur Squamous Epith Cells 2 04/02/19 04/03/19 04/03/19 21:56 09:15 09:15 WBC RBC Hgb Hct MCV MCH MCHC RDW Plt Count MPV Neut % (Auto) Lymph % (Auto) Carbon % (Auto) Eos % (Auto) Baso % (Auto) Neut # (Auto) Lymph # (Auto) Carbon # (Auto) Eos # (Auto) Baso # (Auto) PT 12.2 INR 1.1 Sodium Potassium Chloride Carbon Dioxide Anion Gap BUN Creatinine Est GFR ( Amer) Est GFR (Non-Af Amer) Random Glucose Lactic Acid 0.5 L Calcium Total Bilirubin AST ALT Alkaline Phosphatase Troponin I < 0.0120 Total Protein Albumin Globulin Albumin/Globulin Ratio Lipase Urine Color Urine Clarity Urine pH Ur Specific [place] Urine Protein Urine Glucose (UA) Urine Ketones Urine Blood Urine Nitrate Urine Bilirubin Urine Urobilinogen Ur Leukocyte Esterase Urine RBC (Auto) Urine Microscopic WBC Ur Squamous Epith Cells Attending/Attestation - Attestation I have personally seen and examined this patient.: Yes I have fully participated in the care of the patient.: Yes I have reviewed all pertinent clinical information: Yes Notes (Text): 04/03/19 11:09 I saw, examined and discussed this patient with Dr Menjivar. I agree with the assessment and plan above. This is a 43 years old female with hx of CAD s/p Stents x2 who comes with 3-4 da ys of LLQ abdominal pain reaiatig to the epigastrium and to the whole abdomen,associated with nausea and constipation. The Renal Ultra sound, indicated the presence of an acute acalculous Cholecystitis with the CT scan also showing an unchanged severe right hydronephrosis with chronic cystic scaring and atrophy of the right kidney. We will consult Surgery For the Acalculus Cholecystitis. Place the patient NPO and begin Antibiotics , pain management and IV Fluids Consult Urology for the Hydronephrosis Administer enema for the constipation. Follow up Iron panel for Microcytic Anemia. For the right leg pain we will order Duplex ultrasound of the right lower extremity. Continue treatment for CAD as soon as the patient begins oral diet Daniel Pettit MD
[2019-04-03] MEDS: Lactated Ringer's 1,000 ML IV SCH ×2 (07:12→21:17)
[2019-04-03] MEDS ORDERED: Enoxaparin 40 mg Syringe SC SCH (09:00)
[2019-04-03] MEDS ORDERED: Enoxaparin 30 mg Syringe SC SCH (09:00)
--- NOTE | 2019-04-03 09:12 | CARD ---
APPROVED REPORT Date of service: 04/02/2019 EKG Measurement Heart [id number] <Conclusion> Sinus bradycardia Otherwise normal ECG
--- NOTE | 2019-04-03 09:43 | US ---
Date of service: 04/03/2019 PROCEDURE: Bilateral lower extremity venous duplex Doppler. HISTORY: Lower extremity pain COMPARISON: None available. TECHNIQUE: Bilateral common femoral, superficial femoral, popliteal and posterior tibial veins were evaluated. Flow was assessed with color Doppler, compressibility, assessment of phasic flow and augmentation response. FINDINGS: COMMON FEMORAL VEIN: Right CFV: Unremarkable. Left CFV: Unremarkable. SUPERFICIAL FEMORAL VEIN: Right SFV: Unremarkable. Left SFV: Unremarkable. POPLITEAL VEIN: Right Popliteal: Unremarkable. Left Popliteal: Unremarkable. POSTERIOR TIBIAL VEIN: Right PTV: Unremarkable. Left PTV: Unremarkable. OTHER FINDINGS: None. IMPRESSION: No sonographic evidence of deep venous thrombosis bilateral lower extremities.
[2019-04-03 09:44] LABS: INR 1.1; PROTHROMBIN TIME 12.2 Seconds (9.8-13.1)
[2019-04-03] MEDS: Piperacillin/Tazobact 3.375 GM in Sodium Chloride 0.9% 100 ML IVPB SCH ×3 (10:29→21:15)
--- NOTE | 2019-04-03 10:41 | CP.PCM.PN ---
Subjective - Date & Time of Evaluation Date of Evaluation: 04/03/19 Time of Evaluation: 10:32 - Subjective Subjective: Gu note. 43 year old female with leftsided abdomonal pain, normal wbc,normal creatine. Pt has massive multi cystic kidney, on right with little visible parencma.the left kidney shows some hydro with no visible obstruction. Suggest await formal reading of ct,and urine c&S. will discus with you. Clement Objective - Vital Signs/Intake and Output Vital Signs (last 24 hours): Temp Pulse Resp BP Pulse Ox 98.6 F 58 L 20 114/56 L 99 04/03/19 08:35 04/03/19 08:35 04/03/19 08:35 04/03/19 08:35 04/03/19 08:35 - Medications Medications: Current Medications Acetaminophen (Tylenol 325mg Tab) 650 mg PO Q6 PRN PRN Reason: Pain, Mild (1-3) Aspirin (Ecotrin) 81 mg PO DAILY DHARMESH Famotidine (Pepcid) 20 mg IVP DAILY [facility] Last Admin: 04/03/19 09:47 Dose: 20 mg Lactated Ringer's (Lactated Ringer's) 1,000 mls @ 100 mls/hr IV .Q10H DHARMESH Last Admin: 04/03/19 07:12 Dose: 100 mls/hr Piperacillin Sod/Tazobactam (Sod 3.375 gm/ Sodium Chloride) 100 mls @ 100 mls/hr IVPB Q6 DHARMESH; Protocol Last Admin: 04/03/19 10:29 Dose: 100 mls/hr Ketorolac Tromethamine (Toradol) 30 mg IVP Q6 PRN PRN Reason: Pain, severe (8-10) Last Admin: 04/03/19 10:05 Dose: 30 mg Ketorolac Tromethamine (Toradol) 15 mg IVP Q6 PRN PRN Reason: Pain, moderate (4-7) Ondansetron HCl (Zofran Inj) 4 mg IVP Q6 PRN PRN Reason: Nausea/Vomiting - Labs Labs: 04/02/19 21:26 04/02/19 21:26 PT 12.2 Seconds (9.8-13.1) 04/03/19 09:15 INR 1.1 04/03/19 09:15
--- NOTE | 2019-04-03 11:32 | CT ---
Date of service: 04/03/2019 PROCEDURE: CT Abdomen and Pelvis with contrast HISTORY: LLQ pain, constipation COMPARISON: Abdomen and pelvis ultrasound exams, both dated 07/29/2018. TECHNIQUE: Following oral and intravenous contrast administration, a CT examination of the abdomen and pelvis was performed from the domes of the diaphragms to the symphysis pubis with reformatted datasets provided not only axial but also sagittal and coronal series. Contrast dose: Omnipaque 300, 95 cc Radiation dose: Total exam DLP = 623.42 mGy-cm. This CT exam was performed using one or more of the following dose reduction techniques: Automated exposure control, adjustment of the mA and/or kV according to patient size, and/or use of iterative reconstruction technique. FINDINGS: LOWER THORAX: No suspicious findings in either lung base at this time. LIVER: Nonspecific periportal edema seen the liver with no a patent mass identified. Liver otherwise appears unremarkable. GALLBLADDER AND BILE DUCTS: Gallbladder is distended with moderate pericholecystic fluid but no radiodense cholelithiasis or prominent mural thickening. Nevertheless, consider potential cholecystitis. PANCREAS: Unremarkable. No gross lesion or ductal dilatation. SPLEEN: Unremarkable. ADRENALS: Unremarkable. No mass. 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 The right renal pelvis is grossly dilated as well as pelvocaliceal system in its entirety. The left kidney appears unremarkable. VASCULATURE: Unremarkable. No aortic aneurysm. No aortic atherosclerotic calcification or mural plaque present. BOWEL: Stomach is not fully distended limiting evaluation of the greater curvature wall. Clinically correlate further. The large and small bowel are somewhat deflected toward the left by gross right hydroureteronephrosis. There is a moderate amount retained fecal material identified within the lumen of the ascending through transverse large-bowel segments with only a small volume otherwise evident throughout the remainder. No definite bowel obstruction identified. APPENDIX: Normal appendix. PERITONEUM: Unremarkable. LYMPH NODES: Unremarkable. No enlarged lymph nodes. BLADDER: Distended but otherwise unremarkable. REPRODUCTIVE: 2.1 cm right adnexal cyst identified with the left adnexal compartment unremarkable. BONES: No acute fracture. OTHER FINDINGS: None. IMPRESSION: 1. A distended gallbladder is appreciate without cholelithiasis or prominent mural thickening however pericholecystic fluid is identified and cholecystitis is difficult to completely exclude. Clinically correlate further. 2. Nonspecific limited periportal edema identified. 3. 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 Right ureter is normal in caliber. No left-sided hydronephrosis or other left renal finding. 4. No bowel obstruction, measure edema or other suspicious bowel finding. Majority of bowel is displaced toward the left kendal abdomen by gross dilatation of the right pelvocaliceal renal collecting system. 5. 2.1 cm right adnexal cyst. Preliminary report provided by Madelaine, 04/03/2019, 2:17 a.m..
[2019-04-03] MEDS ORDERED: Lidocaine Hydrochloride 1% 10 ML ONE (12:10)
--- NOTE | 2019-04-03 12:34 | PCM.SURG1 ---
Surgeon's Initial Post Op Note - Surgeon's Notes Surgeon: Wayne Flores MD Beam Sealer: NONE Type of Anesthesia: Local Pre-Operative Diagnosis: Renal cysts, pain Operative Findings: US showed multiple right renal cysts and a large >14 cm cyst. Post-Operative Diagnosis: Renal cysts Operation Performed: US guided aspiration. Specimen/Specimens Removed: 600 cc of clear fluid removed Estimated Blood Loss: EBL {In ML}: 0 Blood Products Given: N/A Drains Used: No Drains Post-Op Condition: Fair Date of Surgery/Procedure: 04/03/19 Time of Surgery/Procedure: 12:30
--- NOTE | 2019-04-03 14:09 | US ---
Date of service: 04/03/2019 HISTORY: epigastric pain, CT showing thickening gallbladder COMPARISON: 07/29/2018. abdominal ultrasound. 04/03/2019. CT abdomen and pelvis. TECHNIQUE: Sonographic evaluation of the right upper quadrant of the abdomen. FINDINGS: LIVER: Measures 15.9 cm in length. Patent portal and hepatic venous systems. Portal venous flow: Hepatopetal. echogenicity of the liver parenchyma. No mass. No intrahepatic bile duct dilatation. GALLBLADDER: Gallbladder wall thickening. Maximum diameter 6 mm. Trace pericholecystic fluid identified. COMMON BILE DUCT: Measures 4.1 mm. No stones. No dilatation. PANCREAS: Unremarkable as visualized. No mass. No ductal dilatation. RIGHT KIDNEY: Measures 8 x 9.5 x 17.9. cm in length. Right hydronephrosis, severe similar to that seen on the prior study. AORTA: No aneurysmal dilatation. IVC: Unremarkable. OTHER FINDINGS: None . IMPRESSION: Gallbladder wall thickening associated trace pericholecystic fluid. These represent new findings compared to the prior ultrasound. No gallstones identified nor is there elicited sonographic Valdes sign. In the appropriate clinical setting acalculous cholecystitis can assume this appearance. Concordant findings (preliminary report) provided by [facility].
--- NOTE | 2019-04-03 23:17 | CON ---
DATE: 04/03/2019 REASON FOR CONSULTATION: Large right renal cyst. HISTORY OF PRESENT ILLNESS: The patient was admitted through the emergency room where she presented with abdominal pain. She had a recent CAT scan, which shows a massive right renal cyst. The patient is complaining of a dull right pain and urinary frequency and urgency. She has a history of having this pain before. She was told about the cyst in the previous evaluation in 2012 with IVP shows no functioning in the right renal unit and a left kidney, which appears normal. Today's CAT scan shows some caliectasis in the left kidney and a massive right multiloculated cyst with very little parenchyma present. The patient also had a lab work done, which shows a normal white count and a normal creatinine. Urine culture is pending. PHYSICAL EXAMINATION: VITAL SIGNS: Within normal limits. The patient is afebrile. HEAD, EARS, EYES, NOSE AND THROAT: Within normal limits. NECK: Supple. There are no bruits, nodes or masses. CHEST: Clear bilaterally. There are no rales or rhonchi. HEART: Normal sinus rhythm. BREASTS: Breasts were not examined at the patient's request. BACK: There is no CVA tenderness. GENITOURINARY: Vaginal examination was refused. EXTREMITIES: Appeared normal. NEUROLOGIC: Normal. IMPRESSION: My impression is massive multiloculated right renal cyst, which appears old and questionable left caliectasis, unknown etiology with no apparent obstruction. PLAN: I discussed this case with the resident. I suggest we wait for the results of the urine culture and I get the formal report of the CAT scan once read by the radiologist. Since she has already consulted the interventional radiologist, I suggest we will obtain his opinion on whether cyst puncture is warranted. I discussed this case with the resident. Brandon Vaughan MD
[2019-04-04] MEDS: Lactated Ringer's 1,000 ML IV SCH (02:45)
[2019-04-04] MEDS: Piperacillin/Tazobact 3.375 GM in Sodium Chloride 0.9% 100 ML IVPB SCH ×2 (03:05→09:00)
[2019-04-04 06:58] LABS: HEMOGLOBIN 8.4 g/dL (12.0-16.0); MEAN CELL VOLUME 71.5 fl (81.0-99.0); MEAN CORPUSCULAR HGB CONC 32.2 g/dL (33.0-37.0); RBC 3.63 Mil/uL (3.80-5.20); RED CELL DISTRIBUTION WIDTH 16.1 % (11.5-14.5); WHITE BLOOD COUNT 7.1 K/uL (4.8-10.8)
[2019-04-04 07:10] LABS: CALCIUM 8.5 mg/dL (8.4-10.2)
[2019-04-04 07:17] LABS: IRON 21 ug/dL (37-170)
[2019-04-04 07:27] LABS: % IRON SATURATION 6 % (20-55); TOTAL IRON BINDING CAPACITY 359 ug/dL (250-450)
[2019-04-04 08:08] VITALS: BP 94/51; PULSE 66; RESP 20; TEMP 98.1; O2SAT 99
[2019-04-04] MEDS ORDERED: Enoxaparin 40 mg Syringe SC SCH (09:00)
--- NOTE | 2019-04-04 10:46 | CP.PCM.DIS ---
Provider - Provider Date of Admission: 04/03/19 04:32 Attending physician: Daniel Pettit Consults: 04/03/19 04:34 Surgery [General Surgery Consult] Stat Comment: Consulting Provider: Bryon Wynn Consulting Physician: Bryon Wynn Reason for Consult: acalculus cholecystitis 04/03/19 08:25 Urology Consult Routine Comment: Consulting Provider: Brandon Vaughan Jr. Consulting Physician: Brandon Vaughan Jr. Reason for Consult: LARGE RIGHT KIDNEY CYST Time Spent in preparation of Discharge (in minutes): 33 Diagnosis - Discharge Diagnosis (1) Acalculous cholecystitis Status: Acute (2) Renal cyst Status: Acute Comment: S/P Percutaneous drainage of right renal cyst (3) Iron deficiency anemia Status: Acute Hospital Course - Lab Results Lab Results: Micro Results 04/03/19 05:13 Blood Blood Culture - Preliminary NO GROWTH AFTER 24 HOURS 04/03/19 04:50 Blood Blood Culture - Preliminary NO GROWTH AFTER 24 HOURS Most Recent Lab Values WBC 7.1 K/uL (4.8-10.8) 04/04/19 05:35 RBC 3.63 Mil/uL (3.80-5.20) L 04/04/19 05:35 Hgb 8.4 g/dL (12.0-16.0) L 04/04/19 05:35 Hct 26.0 % (34.0-47.0) L 04/04/19 05:35 MCV 71.5 fl (81.0-99.0) L 04/04/19 05:35 MCH 23.0 pg (27.0-31.0) L 04/04/19 05:35 MCHC 32.2 g/dL (33.0-37.0) L 04/04/19 05:35 RDW 16.1 % (11.5-14.5) H 04/04/19 05:35 Plt Count 184 K/uL (130-400) 04/04/19 05:35 MPV 8.6 fl (7.2-11.7) 04/02/19 21:26 Neut % (Auto) 67.1 % (50.0-75.0) 04/02/19 21:26 Lymph % (Auto) 22.8 % (20.0-40.0) 04/02/19 21:26 [place] % (Auto) 8.2 % (0.0-10.0) 04/02/19 21: Eos % (Auto) 1.3 % (0.0-4.0) 04/02/19 21: Baso % (Auto) 0.6 % (0.0-2.0) 04/02/19 21:26 Neut # (Auto) 5.6 K/uL (1.8-7.0) 04/02/19 21: Lymph # (Auto) 1.9 K/uL (1.0-4.3) 04/02/19 21: [place] # (Auto) 0.7 K/uL (0.0-0.8) 04/02/19: Eos # (Auto) 0.1 K/uL (0.0-0.7) 04/02/19: Baso # (Auto) 0.1 K/uL (0.0-0.2) 04/02/19 21: PT 12.2 Seconds (9.8-13.1) 04/03/19 09:15 INR 1.1 04/03/19 09:15 Sodium 136 mmol/l (132-148) 04/04/19 05:35 Potassium 4.1 MMOL/L (3.6-5.0) 04/04/19 05:35 Chloride 104 mmol/L (98-107) 04/04/19 05:35 Carbon Dioxide 25 mmol/L (22-30) 04/04/19 05:35 Anion Gap 11 (10-20) 04/04/19 05:35 BUN 15 mg/dl (7-17) 04/04/19 05:35 Creatinine 1.2 mg/dl (0.7-1.2) 04/04/19 05:35 Est GFR ( Amer) 60 04/04/19 05:35 Est GFR (Non-Af Amer) 50 04/04/19 05:35 Random Glucose 84 mg/dL (65-105) 04/04/19 05:35 Lactic Acid 0.5 mmol/L (0.7-2.1) L 04/03/19 09:15 Calcium 8.5 mg/dL (8.4-10.2) 04/04/19 05:35 Iron 21 ug/dL (37-170) L 04/04/19 05:35 TIBC 359 ug/dL (250-450) 04/04/19 05:35 % Saturation 6 % (20-55) L 04/04/19 05:35 Total Bilirubin 0.2 mg/dl (0.2-1.3) 04/02/19 21:26 AST 36 U/L (14-36) 04/02/19 21:26 ALT 18 U/L (9-52) 04/02/19 21:26 Alkaline Phosphatase 46 U/L (38-126) 04/02/19 21:26 Troponin I < 0.0120 ng/mL (0.00-0.120) 04/02/19 21:56 Total Protein 7.3 G/DL (6.3-8.2) 04/02/19 21:26 Albumin 4.1 g/dL (3.5-5.0) 04/02/19 21:26 Globulin 3.2 gm/dL (2.2-3.9) 04/02/19 21:26 Albumin/Globulin Ratio 1.3 (1.0-2.1) 04/02/19 21:26 Lipase 259 U/L (23-300) 04/02/19 21:26 Urine Color Yellow (YELLOW) 04/02/19 21:26 Urine Clarity Slighty-cloudy (Clear) 04/02/19 21:26 Urine pH 7.0 (5.0-8.0) 04/02/19 21:26 Ur Specific [place] 1.018 (1.003-1.030) 04/02/19 21:26 Urine Protein Negative mg/dL (NEGATIVE) 04/02/19 21:26 Urine Glucose (UA) Neg mg/dL (NEGATIVE) 04/02/19 21:26 Urine Ketones Negative mg/dL (NEGATIVE) 04/02/19 21:26 Urine Blood Negative (NEGATIVE) 04/02/19 21:26 Urine Nitrate Negative (NEGATIVE) 04/02/19 21:26 Urine Bilirubin Negative (NEGATIVE) 04/02/19 21:26 Urine Urobilinogen 0.2-1.0 mg/dL (0.2-1.0) 04/02/19 21:26 Ur Leukocyte Esterase Neg [place]/uL (Negative) 04/02/19 21:26 Urine RBC (Auto) 1 /hpf (0-3) 04/02/19 21:26 Urine Microscopic WBC 1 /hpf (0-5) 04/02/19 21:26 Ur Squamous Epith Cells 2 /hpf (0-5) 04/02/19 21:26 - Hospital Course Hospital Course: 43 yo female with CAD (1 stent placed in 2013) presented to the ED because of abdominal pain x 2days on the left side of the abdomen with radiaion to the epigastrium and the right side of the abdomen, constant, 8/10,dull-like pain. Patient tried tylenol for abdominal pain relief but reported with not help. LMP was 03/23/19. Denied fevers, vomiting, back pain, difficulty breathing, or dysuria. CT scan of Abdm showed large right kidney cyst. URology was consulted and Interventional radiology Dr Holland. A percutaneous US guided right Renal Cyst drainage was performed by IR with removal of 600 cc clear fluid on 04/03. Culture negative after 24h. Patient tolerated well the procedure. Chart and clinicla data reviewed. Chem 7 WNL. Patient has MOY Hb 8.4, Vennofer 100 x 1 dose give and started on Vit C 500 and Ferrrous sulfate PO QD. Patient is hemodinamically and clinically stable for discharge home with continued outpatient follow up with PMD. Discharge Exam - Head Exam Head Exam: ATRAUMATIC - Eye Exam Eye Exam: EOMI - ENT Exam ENT Exam: Mucous Membranes Moist - Respiratory Exam Respiratory Exam: Clear to PA & Lateral - GI/Abdominal Exam GI & Abdominal Exam: Soft - Neurological Exam Neurological exam: Alert, Oriented x3 - Skin Skin Exam: Pallor, Warm Discharge Plan - Discharge Medications Prescriptions: Acetaminophen [Tylenol 325mg tab] 650 mg PO Q6 PRN #30 tab PRN Reason: Pain, Mild (1-3) Ascorbic Acid [Vitamin C 500 mg Tab] 500 mg PO DAILY #30 tab Ciprofloxacin 250 mg PO Q12H 5 Days #10 ml Ferrous Sulfate [Feosol] 325 mg PO DAILY #30 tab - Follow Up Plan Condition: STABLE Disposition: HOME/ ROUTINE Instructions: Abscess Drainage, Percutaneous (Fluoroscopic, Ultrasonic, or CT Guidance), Cholecystitis (DC) Additional Instructions: [facility] dentro de 2-3 jensen ED precautions given: Go to the ED if you have abdominal pain that does not get relief with pain medication, chest pain, shortness of breath, fever, persistent nausea, vomiting, or any other new symptom of concern presents [facility] [Outside] Bryon Wynn MD [Staff Provider] - Brandon Vaughan Jr., MD [Staff Provider] -
--- NOTE | 2019-04-07 12:48 | US ---
PROCEDURE: Date of procedure: 04/03/2019 Procedure: 1. right renal cyst aspiration. Medications: 6 cubic centimeters 1 percent lidocaine. HISTORY: Renal cyst, pain. TECHNIQUE: Following informed consent procedure time-out, limited ultrasound performed the patient showed a multiple large right renal cyst. The largest cyst measures over 15 centimeters. After the patient abdomen was prepped and draped in the usual sterile fashion, the skin was anesthetized with 1 % lidocaine. A 5 [place] Gemseh catheter was advanced under ultrasound guidance into the largest right renal cyst. 600 cubic centimeters of clear fluid was aspirated. Post drainage ultrasound showed decreased size of the largest right renal cyst. A dressing was applied. IMPRESSION: Ultrasound-guided aspiration of the largest right renal cyst with removal of 600 cubic centimeters of clear fluid..
== END 2019-04-04 14:30 | disposition home or self-care (01) | DRG 468 ==
LOC: H.ER 20:26 → H.ERHOLD 04-03 04:32 → H.MEDSURG1 04-03 06:17
PROVIDERS: ADMIT Internal Medicine; ATTEND Internal Medicine
PROC: 0T903ZX Drainage of Right Kidney, Percutaneous Approach, Diagnostic (ICD-10-PCS; principal; 2019-04-03)
DX: N28.1 Cyst of kidney, acquired (principal); Q62.11 Congenital occlusion of ureteropelvic junction; E78.5 Hyperlipidemia, unspecified; D50.9 Iron deficiency anemia, unspecified; N13.30 Unspecified hydronephrosis; I25.10 Atherosclerotic heart disease of native coronary artery without angina pectoris; K59.00 Constipation, unspecified; Z95.5 Presence of coronary angioplasty implant and graft; K57.30 Diverticulosis of large intestine without perforation or abscess without bleeding; N83.209 Unspecified ovarian cyst, unspecified side; M79.604 Pain in right leg; R39.15 Urgency of urination